=== PATIENT | female | born 1955 | race Caucasian/White ===

== ENCOUNTER 2021-05-02 16:11 | Inpatient (IN) ==
[2021-05-02] MEDS ORDERED: ONDANSETRON 4 MG/2 ML VIAL IV ONE ×2 (16:21→19:15)
--- NOTE | 2021-05-02 16:29 | Emergency Department Note ---
Nausea/Vomiting/Diarrhea HPI General Chief complaint: Nausea/Vomiting/Diarrhea Stated complaint: nausea, vomiting, fever Time Seen by Provider: 05/02/21 16:13 Mode of arrival: ambulatory Limitations: no limitations History of Present Illness HPI Narrative: Narrative: Patient is a 65-year-old female with history of non-Hodgkin's lymphoma, and she is currently receiving chemotherapy from oncologist, Dr. Martines in [place]. Patient reports that she took her temperature at home and had a reading of 100.5 degrees. She called the oncology nurse who advised her to go to the emergency department. She reports that she has had nausea and vomiting since night. She reports that she often will have nausea and vomiting due to the chemotherapy. She feels that the nausea vomiting is no different than her usual nausea and vomiting. She has been constipated. She took a dose of MiraLAX yesterday. She reports she had a soft brown bowel movement today. She has not had any chest pain, shortness of breath, wheezing, or difficulty breathing. She denies any sore throat, ear pain, nasal congestion. She does have some slight abdominal aching sensation that is diffuse throughout her abdomen. She feels that this is related to her nausea and persistent vomiting, and she feels that the pain is muscular at the abdominal muscles due to her vomiting. She reports past surgical history of cholecystectomy. She denies any urinary frequency, hesitancy, or dysuria. She was treated for a urinary tract infection 2 weeks ago. She has not had any back pain, flank pain, headache, or weakness. She has not noticed any change in color of skin, lesion, or rash. She does have a slight nonproductive cough, and she reports that this is chronic. Related Data Home Medications Medication Instructions Recorded Confirmed albuterol sulfate 90 mcg/actuation 2 inh INHALATION Q6H PRN 12/20/18 05/02/21 breath activated powder inhaler amlodipine 5 mg tablet 5 mg PO QDAY 12/20/18 05/02/21 fluoxetine 20 mg capsule 20 mg PO QDAY 12/20/18 05/02/21 fluticasone 500 mcg-salmeterol 50 1 inh INHALATION BID 12/20/18 05/02/21 mcg/dose blistr powdr for inhalation hydroxychloroquine 200 mg tablet 400 mg PO QDAY tab 12/20/18 05/02/21 losartan 100 1 tab PO QDAY 12/20/18 05/02/21 mg-hydrochlorothiazide 25 mg tablet meloxicam 15 mg tablet 15 mg PO QDAY 12/20/18 05/02/21 omeprazole 20 mg capsule,delayed 20 mg PO QDAY 12/20/18 05/02/21 release aspirin 81 mg tablet 81 mg PO QDAY 01/02/19 05/02/21 folic acid 6 mg PO QDAY 01/02/19 05/02/21 glucosamine 750 1 tab PO BID 01/02/19 05/02/21 loperamide 2 mg tablet 4 mg PO QDAY tab 01/02/19 05/02/21 methotrexate 20 mg 1 tab PO QWEEK 01/02/19 05/02/21 multivitamin 1 cap PO QDAY 01/02/19 05/02/21 potassium gluconate 99mg 1 tab PO QDAY 01/02/19 05/02/21 psyllium husk 0.52 gram capsule 0.52 g PO QHS 01/02/19 05/02/21 calcium carbonate 600 mg (1,500 1 tab PO QDAY 07/02/19 05/02/21 mg)-vitamin D3 400 unit tablet cholestyramine (with sugar) 4 gram 1 g PO QDAY g 07/02/19 05/02/21 oral powder guaifenesin [Mucinex] 1 tab PO Q4-5HP PRN 08/22/20 05/02/21 acyclovir 400 mg tablet 400 mg PO QDAY 03/30/21 05/02/21 ipratropium 0.5 mg-albuterol 3 mg 3 ml INHALATION BID PRN ml 03/30/21 05/02/21 (2.5 mg base)/3 mL nebulization soln rituximab 10 mg/mL IV 03/30/21 03/30/21 concentrate,intravenous sulfamethoxazole 800 See Rx Instructions .ROUTE 03/30/21 05/02/21 mg-trimethoprim 160 mg tablet .COMPLEX tab Previous Rx's Medication Instructions Recorded hydrocodone 7.5 mg-acetaminophen See Rx Instructions .ROUTE 01/28/21 325 mg tablet .COMPLEX PRN #30 tab Allergies Allergy/AdvReac Type Severity Reaction Status Date / Time cyclosporine [From Restasis] AdvReac Severe Swelling Verified 03/30/21 10:24 of the Eye vancomycin AdvReac Severe Hives Verified 03/30/21 10:24 cedar dust AdvReac Severe Other Uncoded 03/30/21 10:24 Review of Systems ROS ROS Narrative: Narrative: All systems ED: reviewed and negative except as stated. [facility] Narrative Patient History Narrative: Narrative: Medical/Surgical/Family History All Active Problems (Updated 05/02/21 @ 19:28 by Adan Rocha MD) Hypokalemia (Acute) Sepsis (Acute) UTI (urinary tract infection) (Acute) Fracture of right clavicle (Acute) Vaginitis (Acute) Joint pain (Chronic) Bile acid malabsorption syndrome (Chronic ~1989) History of colonoscopy (Chronic) Visit for monitoring Rituxan therapy (Chronic ~2018) History of surgery (Chronic ~04/2019) History of femur fracture (Chronic ~03/2019) Acute URI (Chronic) Vaginitis (Chronic) Non Hodgkin's lymphoma (Chronic ~04/2018) Upper respiratory infection (Chronic) Bronchiectasis (Chronic) Pulmonary HTN (Chronic ~02/2019) GERD (gastroesophageal reflux disease) (Chronic) Follicular lymphoma (Chronic ~04/2018) Coughing up blood (Chronic 03/14/14) Lower respiratory infection (Chronic) Influenza A (Chronic) Asthma exacerbation (Chronic) Mastodynia (Chronic) Diarrhea (Chronic) Gall stones (Chronic) History of blood transfusion (Chronic) Pneumonia (Chronic 06/2010) Bronchitis (Chronic) Back problem (Chronic) Arthritis (Chronic) Exposure to TB (Chronic) Measles (Chronic) Sarcoidosis (Chronic ~02/1994) Amyloidosis (Chronic) Asthma (Chronic) Hypertension (Chronic) Depression (Chronic) Obesity (Chronic) Arthritis of foot, left, degenerative (Chronic) Medical History Amyloidosis 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 Arthritis Asthma Asthma exacerbation Back problem Bile acid malabsorption syndrome (~1989) Bronchiectasis Bronchitis Coughing up blood (03/14/14) Depression Diarrhea Exposure to TB Follicular lymphoma (~04/2018) Stage IV Fracture of right clavicle Gall stones History of blood transfusion History of femur fracture (~03/2019) Repaired with hip to knee [place] Hypertension Influenza A Joint pain Lower respiratory infection Mastodynia Measles Non Hodgkin's lymphoma (~04/2018) Obesity Pneumonia (06/2010) Pulmonary HTN (~02/2019) Sarcoidosis (~02/1994) intermittently symptomatic Visit for monitoring Rituxan therapy (~2018) Surgical History Finger joint replacement of left hand (2007) Basal joint Finger joint replacement of right hand (2009) Basal joint H/O left knee surgery (1975) Meniscus removal H/O: hysterectomy (1996) still has overies History of bone marrow biopsy (06/2018) History of cholecystectomy (03/2018) History of colonoscopy History of knee replacement procedure of left knee (2004) History of knee replacement procedure of right knee (2010) History of surgery (~04/2019) Port placement & right axillary lymph node removed S/P knee replacement (2004) Left Family History Father , age 63 years COPD (chronic obstructive pulmonary disease) HTN (hypertension) Stroke Mother , 69 years Acute alcohol abuse Brother Heart attack Stroke Liver cancer Grandfather Prostate cancer Maternal Sister HTN (hypertension) Thyroid disease Other CHF (congestive heart failure) Hepatitis C No pertinent family history Social History Smoking Status: Never smoker Alcohol Intake Frequency: holiday/special occasion only Substance Use: does not use Exam Narrative Narrative: Narrative: General Limitations: no limitations General appearance: Present alert, in no apparent distress and obese Eye Eye: Present normal appearance; Absent scleral icterus ENT ENT: Present normal oropharynx and mucous membranes moist Neck Neck: Present trachea midline; Absent lymphadenopathy and thyromegaly Chest Chest: Present symmetric chest wall rise Respiratory Respiratory: Present normal lung sounds bilaterally; Absent respiratory distress, rales/crackles, wheezes, stridor, accessory muscle use and prolonged expiratory phase Cardiovascular Cardiovascular: Present regular rate and normal rhythm; Absent systolic murmur and diastolic murmur Adbominal Abdominal: Present soft, tenderness (Mild suprapubic tenderness. No rebound tenderness or palpation on the right lower quadrant or left lower quadrant.) and normal bowel sounds; Absent distention Extremities Extremities: Present normal inspection, full ROM and normal capillary refill; Absent pretibial edema Neurological Neurological: Present alert and oriented X3 Psychiatric Psychiatric: Present normal affect and normal mood Skin Skin: Present warm (WNL), dry and normal color Course Vital Signs Vital signs: Vital Signs Temperature 99.8 F H 05/02/21 16:13 Pulse Rate 107 H 05/02/21 16:13 Respiratory Rate 20 05/02/21 16:13 Blood Pressure 129/66 05/02/21 16:13 Pulse Oximetry (%) 94 05/02/21 16:13 Temperature 99.8 F H 05/02/21 16:13 Pulse Rate 100 H 05/02/21 18:30 Respiratory Rate 20 05/02/21 16:13 Blood Pressure 166/125 05/02/21 18:30 Pulse Oximetry (%) 94 05/02/21 18:30 MDM MDM Narrative Medical decision making narrative: Narrative: 65-year-old female with fever at home and currently receiving chemotherapy that came in to the emergency department in regards to the fever. She had labs drawn today. Her white count is 32.8. I was able to receive her previous CBC records from [facility], and patient's white count February 13, 2021 was 5.1, on March 30, 2021 white count was 4.2, and on April 27, 2021 white count was 2.8. Patient's urine today shows urinary tract infection. Urine was sent for culture. Patient's recent urine culture from April 19, 2021 grew E. coli. Patient's lactic acid today is normal. Blood cultures were obtained. She received 1 g of Rocephin IV, and 1 L of normal saline. Patient has tachycardia without any hypotension. Patient's potassium today is 2.8. Normal creatinine. I have ordered patient a 40 meq K rider to get be given IV. Given that the patient has urosepsis I feel it would be appropriate for patient to be hospitalized for further IV antibiotic and monitoring. I was able to consult with hospitalist, Dr. Rocha today, and Dr. Rocha will accept patient to admit at [facility]. Lab Data Result diagrams: 05/02/21 17:00 05/02/21 17:00 Labs: Lab Results 05/02/21 05/02/21 05/02/21 Range/Units 17:00 17:00 17:05 WBC 32.8 H* (4.5-11.0) K/mcL RBC 3.56 L (4.00-5.20) M/mcL Hgb 11.1 L (12.0-15.0) g/dL Hct 33.1 L (36.0-48.0) % MCV 93.0 (80.0-100.0) fL MCH 31.2 (26.0-34.0) pg MCHC 33.5 (31.0-36.0) g/dL RDW 16.6 H (11.5-14.5) % Plt Count 200 (140-440) K/mcL MPV 9.6 (7.4-10.4) fL Neut % (Auto) 96.1 H (38.0-78.0) % Lymph % (Auto) 0.5 L (15.0-49.0) % [place] % (Auto) 3.0 (1.0-12.0) % Eos % (Auto) 0 (0.0-7.0) % Baso % (Auto) 0.4 (0.0-2.0) % Lymph # (Auto) 0.15 L (1.50-4.80) K/mcL [place] # (Auto) 0.97 H (0.10-0.90) K/mcL Eos # (Auto) 0.01 (0.00-0.70) K/mcL Baso # (Auto) 0.12 (0.00-0.20) K/mcL Absolute Neutrophils 31.56 H (1.80-8.00) K/mcL VBG Lactic Acid (0.5-2.0) mmol/L Sodium 134 (133-145) mmol/L Potassium 2.8 L* (3.3-5.1) mmol/L Chloride 93 L (96-108) mmol/L Carbon Dioxide 26 (22-30) mmol/L Anion Gap 15.0 (8.0-16.0) BUN 6 L (8-23) mg/dL Creatinine 0.6 (0.6-1.1) mg/dL GFR Calculation 97 Glucose 113 H (70-105) mg/dL Calcium 8.5 L (8.6-10.4) mg/dL Total Bilirubin 1.0 (0.1-1.0) mg/dL AST 23 (<32) U/L ALT 26 (<40) U/L Alkaline Phosphatase 122 H (39-117) U/L Total Protein 6.5 (5.9-8.4) gm/dL Albumin 3.8 (3.2-5.2) gm/dL Globulin 2.7 (2.2-3.7) gm/dL Albumin/Globulin Ratio 1.4 (1.0-2.3) Lipase 12 (7-60) U/L Urine Color Yellow Urine Appearance Hazy A (Clear) Urine pH 6.0 (5.0-9.0) Ur Specific [place] 1.010 (1.000-1.035) Urine Protein Negative (Negative) mg/dL Urine Glucose (UA) Negative (Negative) mg/dL Urine Ketones 20 A (Negative) mg/dL Urine Occult Blood Negative (Negative) mg/dL Urine Nitrate Negative (Negative) Urine Bilirubin Negative (Negative) mg/dL Urine Urobilinogen Negative mg/dL Ur Leukocyte Esterase 25 A (Negative) /ug Urine RBC < 1 (0-3) /hpf Urine WBC 26 H (0-4) /hpf Ur Squamous Epith Cells < 1 (0-4) /hpf Urine Bacteria Few A (0) /hpf Urine Mucus Few A (None) /hpf Ur Culture Indicated? yes 05/02/21 Range/Units 18:08 WBC (4.5-11.0) K/mcL RBC (4.00-5.20) M/mcL Hgb (12.0-15.0) g/dL Hct (36.0-48.0) % MCV (80.0-100.0) fL MCH (26.0-34.0) pg MCHC (31.0-36.0) g/dL RDW (11.5-14.5) % Plt Count (140-440) K/mcL MPV (7.4-10.4) fL Neut % (Auto) (38.0-78.0) % Lymph % (Auto) (15.0-49.0) % [place] % (Auto) (1.0-12.0) % Eos % (Auto) (0.0-7.0) % Baso % (Auto) (0.0-2.0) % Lymph # (Auto) (1.50-4.80) K/mcL [place] # (Auto) (0.10-0.90) K/mcL Eos # (Auto) (0.00-0.70) K/mcL Baso # (Auto) (0.00-0.20) K/mcL Absolute Neutrophils (1.80-8.00) K/mcL VBG Lactic Acid 1.7 (0.5-2.0) mmol/L Sodium (133-145) mmol/L Potassium (3.3-5.1) mmol/L Chloride (96-108) mmol/L Carbon Dioxide (22-30) mmol/L Anion Gap (8.0-16.0) BUN (8-23) mg/dL Creatinine (0.6-1.1) mg/dL GFR Calculation Glucose (70-105) mg/dL Calcium (8.6-10.4) mg/dL Total Bilirubin (0.1-1.0) mg/dL AST (<32) U/L ALT (<40) U/L Alkaline Phosphatase (39-117) U/L Total Protein (5.9-8.4) gm/dL Albumin (3.2-5.2) gm/dL Globulin (2.2-3.7) gm/dL Albumin/Globulin Ratio (1.0-2.3) Lipase (7-60) U/L Urine Color Urine Appearance (Clear) Urine pH (5.0-9.0) Ur Specific [place] (1.000-1.035) Urine Protein (Negative) mg/dL Urine Glucose (UA) (Negative) mg/dL Urine Ketones (Negative) mg/dL Urine Occult Blood (Negative) mg/dL Urine Nitrate (Negative) Urine Bilirubin (Negative) mg/dL Urine Urobilinogen mg/dL Ur Leukocyte Esterase (Negative) /ug Urine RBC (0-3) /hpf Urine WBC (0-4) /hpf Ur Squamous Epith Cells (0-4) /hpf Urine Bacteria (0) /hpf Urine Mucus (None) /hpf Ur Culture Indicated? ED POC Tests ED POC Tests: KASSI - SARS Antigen Negative Discharge Plan Patient/Caregiver Discharge Instructions Pt seen by ASSOCIATE PROFESSOR OF BIBLICAL STUDIES/PA only: No Clinical Impression: Sepsis Qualifiers: Sepsis type: sepsis due to unspecified organism Sepsis acute organ dysfunction status: without acute organ dysfunction Qualified Code(s): A41.9 - Sepsis, unspecified organism UTI (urinary tract infection) Qualifiers: Urinary tract infection type: site unspecified Hematuria presence: with hematuria Qualified Code(s): N39.0 - Urinary tract infection, site not specified Patient Disposition: Xfer As Inpt ([facility]) Condition: Good Discharge Date/Time: 05/02/21 20:20
[2021-05-02 17:47] LABS: Appearance,Urine HAZY (Clear); Bacteria,Urine FEW /hpf (0); Bilirubin,Urine Negative (Negative); Color,Urine YELLOW; Culture Indicated,Urine yes; Glucose,Urine (UA) Negative (Negative); Ketones,Urine 20 mg/dL (Negative); Leukocyte Esterase,Urine 25 /ug (Negative); Mucus,Urine FEW /hpf; Nitrate,Urine Negative (Negative); Protein,Urine Negative (Negative); Urine Blood Negative (Negative); Urine RBC < 1 /hpf (0-3); Urine Squamous Epithelial Cell < 1 /hpf (0-4); Urine WBC 26 /hpf (0-4); Urobilinogen,Urine Negative
[2021-05-02 17:52] LABS: Basophils # (Auto) 0.12 K/mcL (0.00-0.20); Basophils % (Auto) 0.4 % (0.0-2.0); Eosinophils # (Auto) 0.01 K/mcL (0.00-0.70); Eosinophils % (Auto) 0 % (0.0-7.0); Hematocrit 33.1 % (36.0-48.0); Hemoglobin 11.1 g/dL (12.0-15.0); Lymphocytes # (Auto) 0.15 K/mcL (1.50-4.80); Lymphocytes % (Auto) 0.5 % (15.0-49.0); Mean Corpuscular HGB Conc 33.5 g/dL (31.0-36.0); Mean Platelet Volume 9.6 fL (7.4-10.4); Monocytes # (Auto) 0.97 K/mcL (0.10-0.90); Platelet Count 200 K/mcL (140-440); RBC 3.56 M/mcL (4.00-5.20); Red Cell Distribution Width 16.6 % (11.5-14.5); WBC 32.8 K/mcL (4.5-11.0)
[2021-05-02] MEDS ORDERED: cefTRIAXone 1 GM VIAL IV ONE (18:04)
[2021-05-02 18:08] LABS: Neutrophils % (Auto) 96.1 % (38.0-78.0)
[2021-05-02 18:28] LABS: ALT/SGPT 26 U/L (<40); AST/SGOT 23 U/L (<32); Albumin 3.8 gm/dL (3.2-5.2); Albumin/Globulin Ratio 1.4 (1.0-2.3); Alkaline Phosphatase 122 U/L (39-117); Blood Urea Nitrogen 6 mg/dL (8-23); Calcium 8.5 mg/dL (8.6-10.4); Carbon Dioxide 26 mmol/L (22-30); Chloride 93 mmol/L (96-108); Globulin 2.7 gm/dL (2.2-3.7); Glomerular Filtration Rate 97; Glucose 113 mg/dL (70-105)
[2021-05-02] MEDS ORDERED: 0.9 % SODIUM CHLORIDE 1,000 ML IV ONE (18:38)
[2021-05-02] MEDS ORDERED: POTASSIUM CHLORIDE 40 MEQ in DEXTROSE 5% IN WATER 500 ML IV ONE (18:38)
[2021-05-02] MEDS ORDERED: POTASSIUM CHLORIDE 20 MEQ/10 ML VIAL IV ONE (18:51)
[2021-05-02] MEDS ORDERED: IPRATROPIUM/ALBUTEROL 3 ML AMPUL.NEB NEB PRN (19:20)
[2021-05-02] MEDS ORDERED: morphine 4 MG/ML VIAL IV PRN (19:23)
[2021-05-02] MEDS ORDERED: ACETAMINOPHEN 325 MG TABLET PO PRN (19:23)
[2021-05-02] MEDS ORDERED: ZOLPIDEM 5 MG TABLET PO PRN (19:23)
[2021-05-02] MEDS ORDERED: ONDANSETRON 4 MG/2 ML VIAL IV PRN (19:23)
--- NOTE | 2021-05-02 19:31 | Internal Med History&Physical ---
HPI History of Present Illness Patient information: Note initiated : 05/02/21 at 7:28 pm Service Date, if different from initiated Date: [] Patient: Ursula Valencia a 65 y/o F admitted on for nausea, vomiting, fever. Chief Complaint: [fever, UTI] History of present illness: Ms. Valencia is a 65 year old F history of non- Hodgkin lymphoma on chemotherapy, amyloidosis, sarcoidosis, pulmonary hypertension's, asthma, essential hypertension's, GERD, morbid obesity, presenting with 2-day history of fever, shaking chills, and nausea vomiting. Of note, she was being diagnosed with E. coli UTI 2 weeks ago and she was prescribed cefuroxime. She finished the antibiotics. She currently denies any urinary symptoms such as dysuria, change in urinary frequency or urgency. She had fever since yesterday with T-max 100.5. She also is committing of shaking chills. She has multiple episode of nausea and vomiting nonbloody nonbilious. She is also complaining of bilateral pelvic cramping moderate constant pain. No alleviating or exacerbating factors. She denies introduction of new foods, sick contact, or recent travel. Leukocytosis with WBC 32.8. Lactic acid 1.7. UA suggestive the presence of urinary tract infections. Constitutional Constitutional: Present chills, fever(s) and weakness; Absent excessive sweating and fatigue EENT Eyes: Absent blurry vision, change in vision, loss of vision and other visual disturbances Ears: Absent decreased hearing and tinnitus Nose, mouth and throat: Absent abnormal hearing, dry mouth, headache(s), nasal congestion and sore throat Cardiovascular Cardiovascular: Absent chest pain, chest pain at rest, edema, irregular heart rhythm and palpatations Respiratory Respiratory: Absent cough, dyspnea and wheezing Gastrointestinal Gastrointestinal: Present abdominal pain, nausea and vomiting; Absent constipation and diarrhea Musculoskeletal Musculoskeletal: Absent back pain, deformity, limited range of motion, muscle cramps, muscle weakness and numbness Integumentary Integumentary: Absent lesions, rash and wounds Neurological Neurological: Absent focal weakness, headache(s) and numbness Psychiatric Psychiatric: Absent anxiety, depression and hallucinations PFSH PFSH All Active Problems (Updated 05/02/21 @ 19:28 by Adan Rocha MD) Hypokalemia (Acute) Sepsis (Acute) UTI (urinary tract infection) (Acute) Fracture of right clavicle (Acute) Vaginitis (Acute) Joint pain (Chronic) Bile acid malabsorption syndrome (Chronic ~1989) History of colonoscopy (Chronic) Visit for monitoring Rituxan therapy (Chronic ~2018) History of surgery (Chronic ~04/2019) History of femur fracture (Chronic ~03/2019) Acute URI (Chronic) Vaginitis (Chronic) Non Hodgkin's lymphoma (Chronic ~04/2018) Upper respiratory infection (Chronic) Bronchiectasis (Chronic) Pulmonary HTN (Chronic ~02/2019) GERD (gastroesophageal reflux disease) (Chronic) Follicular lymphoma (Chronic ~04/2018) Coughing up blood (Chronic 03/14/14) Lower respiratory infection (Chronic) Influenza A (Chronic) Asthma exacerbation (Chronic) Mastodynia (Chronic) Diarrhea (Chronic) Gall stones (Chronic) History of blood transfusion (Chronic) Pneumonia (Chronic 06/2010) Bronchitis (Chronic) Back problem (Chronic) Arthritis (Chronic) Exposure to TB (Chronic) Measles (Chronic) Sarcoidosis (Chronic ~02/1994) Amyloidosis (Chronic) Asthma (Chronic) Hypertension (Chronic) Depression (Chronic) Obesity (Chronic) Arthritis of foot, left, degenerative (Chronic) Medical History Amyloidosis 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 Arthritis Asthma Asthma exacerbation Back problem Bile acid malabsorption syndrome (~1989) Bronchiectasis Bronchitis Coughing up blood (03/14/14) Depression Diarrhea Exposure to TB Follicular lymphoma (~04/2018) Stage IV Fracture of right clavicle Gall stones History of blood transfusion History of femur fracture (~03/2019) Repaired with hip to knee [place] Hypertension Influenza A Joint pain Lower respiratory infection Mastodynia Measles Non Hodgkin's lymphoma (~04/2018) Obesity Pneumonia (06/2010) Pulmonary HTN (~02/2019) Sarcoidosis (~02/1994) intermittently symptomatic Visit for monitoring Rituxan therapy (~2018) Surgical History Finger joint replacement of left hand (2007) Basal joint Finger joint replacement of right hand (2009) Basal joint H/O left knee surgery (1975) Meniscus removal H/O: hysterectomy (1996) still has overies History of bone marrow biopsy (06/2018) History of cholecystectomy (03/2018) History of colonoscopy History of knee replacement procedure of left knee (2004) History of knee replacement procedure of right knee (2010) History of surgery (~04/2019) Port placement & right axillary lymph node removed S/P knee replacement (2004) Left Family History Father , age 63 years COPD (chronic obstructive pulmonary disease) HTN (hypertension) Stroke Mother , 69 years Acute alcohol abuse Brother Heart attack Stroke Liver cancer Grandfather Prostate cancer Maternal Sister HTN (hypertension) Thyroid disease Other CHF (congestive heart failure) Hepatitis C No pertinent family history Social History marital status: occupational status: retired smoking status: Never smoker alcohol intake frequency: holiday/special occasion only substance use type: does not use MEDS/ALLERGIES Home Medications and Allergies Home Medications Medication Instructions Recorded Confirmed Type albuterol sulfate 90 mcg/actuation 2 inh INHALATION Q6H PRN 12/20/18 05/02/21 History breath activated powder inhaler amlodipine 5 mg tablet 5 mg PO QDAY 12/20/18 05/02/21 History fluoxetine 20 mg capsule 20 mg PO QDAY 12/20/18 05/02/21 History fluticasone 500 mcg-salmeterol 50 1 inh INHALATION BID 12/20/18 05/02/21 History mcg/dose blistr powdr for inhalation hydroxychloroquine 200 mg tablet 400 mg PO QDAY tab 12/20/18 05/02/21 History losartan 100 1 tab PO QDAY 12/20/18 05/02/21 History mg-hydrochlorothiazide 25 mg tablet meloxicam 15 mg tablet 15 mg PO QDAY 12/20/18 05/02/21 History omeprazole 20 mg capsule,delayed 20 mg PO QDAY 12/20/18 05/02/21 History release aspirin 81 mg tablet 81 mg PO QDAY 01/02/19 05/02/21 History folic acid 6 mg PO QDAY 01/02/19 05/02/21 History glucosamine 750 1 tab PO BID 01/02/19 05/02/21 History loperamide 2 mg tablet 4 mg PO QDAY tab 01/02/19 05/02/21 History methotrexate 20 mg 1 tab PO QWEEK 01/02/19 05/02/21 History multivitamin 1 cap PO QDAY 01/02/19 05/02/21 History potassium gluconate 99mg 1 tab PO QDAY 01/02/19 05/02/21 History psyllium husk 0.52 gram capsule 0.52 g PO QHS 01/02/19 05/02/21 History calcium carbonate 600 mg (1,500 1 tab PO QDAY 07/02/19 05/02/21 History mg)-vitamin D3 400 unit tablet cholestyramine (with sugar) 4 gram 1 g PO QDAY g 07/02/19 05/02/21 History oral powder guaifenesin [Mucinex] 1 tab PO Q4-5HP PRN 08/22/20 05/02/21 History hydrocodone 7.5 mg-acetaminophen See Rx Instructions .ROUTE 01/28/21 03/30/21 Rx 325 mg tablet .COMPLEX PRN #30 tab acyclovir 400 mg tablet 400 mg PO QDAY 03/30/21 05/02/21 History ipratropium 0.5 mg-albuterol 3 mg 3 ml INHALATION BID PRN ml 03/30/21 05/02/21 History (2.5 mg base)/3 mL nebulization soln rituximab 10 mg/mL IV 03/30/21 03/30/21 History concentrate,intravenous sulfamethoxazole 800 See Rx Instructions .ROUTE 03/30/21 05/02/21 History mg-trimethoprim 160 mg tablet .COMPLEX tab Allergies Allergy/AdvReac Type Severity Reaction Status Date / Time cyclosporine [From Restasis] AdvReac Severe Swelling Verified 03/30/21 10:24 of the Eye vancomycin AdvReac Severe Hives Verified 03/30/21 10:24 cedar dust AdvReac Severe Other Uncoded 03/30/21 10:24 EXAM Constitutional Vitals: Temp Pulse Resp BP Pulse Ox 37.7 C H 100 H 20 166/125 94 05/02/21 16:13 05/02/21 18:30 05/02/21 16:13 05/02/21 18:30 05/02/21 18:30 General appearance: cooperative and no acute distress Head Head exam: Present atraumatic and normocephalic Eye Eye exam: Present EOMI and PERRL ENT ENT exam: Present mucous membranes moist, normal exam and normal external ear exam Neck Neck exam: Present normal inspection; Absent lymphadenopathy, tenderness and thyromegaly Respiratory Respiratory exam: Present prolonged expiratory phase and wheezes; Absent accessory muscle use and respiratory distress Cardiovascular Cardiovascular exam: Present normal rate and rhythm; Absent JVD GI/Abdominal GI/Abdominal exam: Present normal bowel sounds, soft and tenderness; Absent organomegaly Additional comments: obese abdomen Extremities Exam Extremities exam: Present full ROM, normal capillary refill and normal inspection; Absent tenderness Neurological Exam Neurological exam: Present alert, CN II-XII intact and oriented X3; Absent motor sensory deficit Psychiatric Psychiatric exam: Present normal affect and normal mood; Absent anxious and depressed Skin Skin exam: Present dry and intact DATA Data Completed and Pending Labs: Labs from last 24 hours 05/02/21 05/02/21 05/02/21 18:08 17:05 17:00 WBC RBC Hgb Hct MCV MCH MCHC RDW Plt Count MPV Neut % (Auto) Lymph % (Auto) [place] % (Auto) Eos % (Auto) Baso % (Auto) Lymph # (Auto) [place] # (Auto) Eos # (Auto) Baso # (Auto) Absolute Neutrophils VBG Lactic Acid 1.7 Sodium 134 Potassium 2.8 L* Chloride 93 L Carbon Dioxide 26 Anion Gap 15.0 BUN 6 L Creatinine 0.6 GFR Calculation 97 Glucose 113 H Calcium 8.5 L Total Bilirubin 1.0 AST 23 ALT 26 Alkaline Phosphatase 122 H Total Protein 6.5 Albumin 3.8 Globulin 2.7 Albumin/Globulin Ratio 1.4 Lipase 12 Urine Color Yellow Urine Appearance Hazy A Urine pH 6.0 Ur Specific [place] 1.010 Urine Protein Negative Urine Glucose (UA) Negative Urine Ketones 20 A Urine Occult Blood Negative Urine Nitrate Negative Urine Bilirubin Negative Urine Urobilinogen Negative Ur Leukocyte Esterase 25 A Urine RBC < 1 Urine WBC 26 H Ur Squamous Epith Cells < 1 Urine Bacteria Few A Urine Mucus Few A Ur Culture Indicated? yes 05/02/21 17:00 WBC 32.8 H* RBC 3.56 L Hgb 11.1 L Hct 33.1 L MCV 93.0 MCH 31.2 MCHC 33.5 RDW 16.6 H Plt Count 200 MPV 9.6 Neut % (Auto) 96.1 H Lymph % (Auto) 0.5 L [place] % (Auto) 3.0 Eos % (Auto) 0 Baso % (Auto) 0.4 Lymph # (Auto) 0.15 L [place] # (Auto) 0.97 H Eos # (Auto) 0.01 Baso # (Auto) 0.12 Absolute Neutrophils 31.56 H VBG Lactic Acid Sodium Potassium Chloride Carbon Dioxide Anion Gap BUN Creatinine GFR Calculation Glucose Calcium Total Bilirubin AST ALT Alkaline Phosphatase Total Protein Albumin Globulin Albumin/Globulin Ratio Lipase Urine Color Urine Appearance Urine pH Ur Specific [place] Urine Protein Urine Glucose (UA) Urine Ketones Urine Occult Blood Urine Nitrate Urine Bilirubin Urine Urobilinogen Ur Leukocyte Esterase Urine RBC Urine WBC Ur Squamous Epith Cells Urine Bacteria Urine Mucus Ur Culture Indicated? A/P Assessment and plan (1) Hypokalemia: Status: Acute (2) Sepsis: Status: Acute Qualifiers: Sepsis acute organ dysfunction status: without acute organ dysfunction Sepsis type: sepsis due to unspecified organism Qualified Code(s): A41.9 - Sepsis, unspecified organism (3) UTI (urinary tract infection): Status: Acute Qualifiers: Hematuria presence: with hematuria Urinary tract infection type: site unspecified Qualified Code(s): N39.0 - Urinary tract infection, site not specified; R31.9 - Hematuria, unspecified (4) Non Hodgkin's lymphoma: Status: Chronic Qualifiers: Non-Hodgkin lymphoma type: follicular Follicular lymphoma type: unspecified follicular type Lymphoma site: lower extremity Qualified Code(s): C82.95 - Follicular lymphoma, unspecified, lymph nodes of inguinal region and lower limb (5) Pulmonary HTN: Status: Chronic (6) GERD (gastroesophageal reflux disease): Status: Chronic Qualifiers: Esophagitis presence: esophagitis presence not specified Qualified Code(s): K21.9 - Gastro-esophageal reflux disease without esophagitis (7) Bronchitis: Status: Chronic (8) Sarcoidosis: Status: Chronic Comment: intermittently symptomatic (9) Amyloidosis: Status: Chronic Comment: 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 Sepsis with UTI: Admit to inpatient med surg Serial lactic acid Procalcitonin Blood culture X2 Urine culture NS bolus 1L followed by NS@100cc/hr Rocephin Tylenol PRN fever cbc w/ auto diff in the morning to trend WBC 2. h/o non-Hodgkin lymphoma: Continue to monitor, need follow up with oncologist outpatient setting 3. Hypokalemia: Continue potassium replacement CMP in the morning to trend serum potassium level Also check serum Mg level and replace if needed 4. Essential HTN: Amlodipine d/c HCTZ-Losartan, instead do Losartan 100mg PO daily since we are giving IV fluid at the same time 5. h/o GERD: Continue oral PPI 6. 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 h/o asthma and bronchiectasis: Continue Advair Diskus 8. h/o Depression: Fluoxetine 9. Amyloidosis/Sarcoidosis: Continue to monitor GI ppx: continue oral PPI DVY ppx: Lovenox Code status: Full Prognosis: guarded Disposition: inpatient med sug Time Spent With Patient Time: Total time spent is greater than 50% in coordination of care (as documented) at patient's floor/unit and/or counseling patient: Total time spent with greater than 50% in coordination of care (as documented) at patient's floor/unit and/or counseling patient:: 25 - 35 minutes
[2021-05-02] MEDS ORDERED: guaiFENesin 600 MG TAB.SR.12H PO PRN (20:31)
[2021-05-02] MEDS ORDERED: HYDROCODONE/APAP 7.5/325MG TABLET PO PRN (20:32)
[2021-05-02] MEDS: 0.9 % SODIUM CHLORIDE 1,000 ML IV SCH ×2 (20:59→23:53)
[2021-05-02] MEDS ORDERED: PSYLLIUM HUSK 0.52 GM PO SCH (21:00)
[2021-05-02] MEDS: SENNOSIDES 1 TABLET PO SCH (21:17)
[2021-05-02] MEDS: 0.9 % SODIUM CHLORIDE 10 ML SYRINGE IV SCH (21:17)
[2021-05-02] MEDS: DOCUSATE SODIUM 100 MG CAPSULE PO SCH (21:17)
[2021-05-02] MEDS: FLUTICASONE/SALMETEROL 500/50 INHALER #14 INH SCH (21:18)
[2021-05-02] MEDS: GLUCOSAMINE PO SCH (21:58)
[2021-05-03] MEDS: 0.9 % SODIUM CHLORIDE 1,000 ML IV SCH ×4 (06:04→20:08)
[2021-05-03] MEDS: 0.9 % SODIUM CHLORIDE 10 ML SYRINGE IV SCH ×3 (06:04→20:12)
[2021-05-03 07:32] LABS: Basophils # (Auto) 0.07 K/mcL (0.00-0.20); Basophils % (Auto) 0.3 % (0.0-2.0); Eosinophils # (Auto) 0.02 K/mcL (0.00-0.70); Eosinophils % (Auto) 0.1 % (0.0-7.0); Hematocrit 30.5 % (36.0-48.0); Hemoglobin 9.8 g/dL (12.0-15.0); Lymphocytes # (Auto) 0.11 K/mcL (1.50-4.80); Lymphocytes % (Auto) 0.4 % (15.0-49.0); Mean Cell Volume 92.4 fL (80.0-100.0); Mean Corpuscular HGB Conc 32.1 g/dL (31.0-36.0); Mean Platelet Volume 9.9 fL (7.4-10.4); Monocytes % (Auto) 3.7 % (1.0-12.0); Neutrophils % (Auto) 95.5 % (38.0-78.0); Platelet Count 181 K/mcL (140-440); Red Cell Distribution Width 16.3 % (11.5-14.5)
[2021-05-03 07:50] LABS: WBC 27.2 K/mcL (4.5-11.0)
[2021-05-03] MEDS: FLUTICASONE/SALMETEROL 500/50 INHALER #14 INH SCH ×2 (07:56→20:11)
[2021-05-03] MEDS: LOSARTAN 50 MG TABLET PO SCH (07:57)
[2021-05-03] MEDS: DOCUSATE SODIUM 100 MG CAPSULE PO SCH ×2 (07:57→20:11)
[2021-05-03] MEDS: GLUCOSAMINE PO SCH (07:58)
[2021-05-03 07:59] LABS: ALT/SGPT 20 U/L (<40); AST/SGOT 19 U/L (<32); Albumin 3.4 gm/dL (3.2-5.2); Albumin/Globulin Ratio 1.4 (1.0-2.3); Alkaline Phosphatase 166 U/L (39-117); Bilirubin,Total 0.6 mg/dL (0.1-1.0); Blood Urea Nitrogen 4 mg/dL (8-23); Calcium 7.5 mg/dL (8.6-10.4); Carbon Dioxide 28 mmol/L (22-30); Chloride 98 mmol/L (96-108); Globulin 2.4 gm/dL (2.2-3.7); Glomerular Filtration Rate 103; Glucose 116 mg/dL (70-105)
[2021-05-03] MEDS: OMEPRAZOLE 20 MG CAPSULE PO SCH ×2 (07:59→19:28)
[2021-05-03] MEDS: FLUoxetine HCL 20 MG CAPSULE PO SCH (07:59)
[2021-05-03] MEDS: amLODIPine 5 MG TABLET PO SCH (07:59)
[2021-05-03] MEDS: HYDROXYCHLOROQUINE 200 MG TABLET PO SCH (07:59)
[2021-05-03] MEDS: ACYCLOVIR 400 MG TABLET PO SCH (08:00)
[2021-05-03] MEDS ORDERED: ALBUTEROL SULFATE 200 PUFF INHALER INH PRN (08:08)
[2021-05-03] MEDS: MULTIVIT,THER IRON,CA,FA & MIN 1 TABLET PO SCH (08:13)
[2021-05-03] MEDS: POTASSIUM GLUCONATE 99 MG PO SCH (08:13)
[2021-05-03] MEDS: CALCIUM W/VIT D3 500 MG TABLET PO SCH (08:14)
[2021-05-03] MEDS: FOLIC ACID 1 MG TABLET PO SCH (08:14)
[2021-05-03] MEDS: MELOXICAM 7.5 MG TABLET PO SCH (08:15)
[2021-05-03] MEDS: GLUCOSAMINE 750 MG PO SCH ×2 (08:15→22:04)
[2021-05-03] MEDS ORDERED: MELATONIN 3 MG TABLET PO PRN ×2 (08:30→08:45)
--- NOTE | 2021-05-03 08:37 | Internal Med Progress Note ---
SUBJECTIVE Subjective Patient information: Note initiated : 05/03/21 at 8:33 am Service Date, if different from initiated Date: [] Patient: Ursula Valencia a 65 y/o F admitted on 05/02/21 for nausea, vomiting, fever. Chief Complaint: [UTI sepsis] 05/03/21: Afebrile. Blood and urine cultures no growth to date. No other major overnight events. Patient is feeling fine this morning. Denies fever or chills or sweating. Denies dysuria, or change in urinary frequency or urgency. Denies nausea or vomiting. Constitutional Vitals: Vital Signs Temp Pulse Resp BP Pulse Ox 36.2 C 87 18 125/69 93 05/03/21 07:05 05/03/21 07:05 05/03/21 07:05 05/03/21 07:05 05/03/21 07:05 Period Temp Pulse Resp BP Sys/[place] Pulse Ox Last 24 Hr 36.2 C-37.7 C 87-107 18-22 125-166/59-125 93-98 Intake and Output 05/02/21 05/03/21 05/03/21 21:59 05:59 13:59 Intake Total 1000 1800 Output Total 650 1700 300 Balance 350 100 -300 Weight 125.248 kg Intake & Output: Intake & Output 05/02/21 05/03/21 05/03/21 21:59 05:59 13:59 Intake Total 1000 1800 Output Total 650 1700 300 Balance 350 100 -300 Weight 125.248 kg Intake: IV 1000 520 Sodium Chloride 0.9% 1,000 ml @ 1000 Wide Open IV BOLUS ONE Rx#: [id number] Potassium Chloride 40 Meq In 520 Dextrose 5% in Water 500 ml @ 130 mls/hr IV ONCE ONE Rx#: [id number] Oral 1280 Output: Void Amount 650 1700 300 Other: Urine Appearance Clear Urine Color Dark Yellow Light [place] Urine Odor Normal Normal General appearance: cooperative and no acute distress Head Head exam: Present atraumatic and normocephalic Eye Eye exam: Present EOMI and PERRL ENT ENT exam: Present mucous membranes moist, normal exam and normal external ear exam Neck Neck exam: Present normal inspection; Absent lymphadenopathy, tenderness and thyromegaly Respiratory Respiratory exam: Absent accessory muscle use, respiratory distress and wheezes Cardiovascular Cardiovascular exam: Present normal rate and rhythm; Absent JVD GI/Abdominal GI/Abdominal exam: Present normal bowel sounds and soft; Absent organomegaly and tenderness Extremities Exam Extremities exam: Present full ROM, normal capillary refill and normal inspection; Absent tenderness Neurological Exam Neurological exam: Present alert, CN II-XII intact and oriented X3; Absent motor sensory deficit Psychiatric Psychiatric exam: Present normal affect and normal mood; Absent anxious and depressed Skin Skin exam: Present dry and intact OBJ DATA Labs CBC & Chem 7: 05/03/21 05:34 05/03/21 05:34 Labs: Abnormal Lab Results 05/03/21 05/03/21 05/02/21 05:34 05:34 17:05 WBC 27.2 H RBC 3.30 L Hgb 9.8 L Hct 30.5 L RDW 16.3 H Neut % (Auto) 95.5 H Lymph % (Auto) 0.4 L Lymph # (Auto) 0.11 L [place] # (Auto) 1.00 H Absolute Neutrophils 26.01 H Potassium 2.7 L* Chloride BUN 4 L Creatinine 0.5 L Glucose 116 H Calcium 7.5 L Alkaline Phosphatase 166 H Total Protein 5.8 L Procalcitonin Urine Appearance Hazy A Urine Ketones 20 A Ur Leukocyte Esterase 25 A Urine WBC 26 H Urine Bacteria Few A Urine Mucus Few A 05/02/21 05/02/21 05/02/21 17:00 17:00 17:00 WBC 32.8 H* RBC 3.56 L Hgb 11.1 L Hct 33.1 L RDW 16.6 H Neut % (Auto) 96.1 H Lymph % (Auto) 0.5 L Lymph # (Auto) 0.15 L [place] # (Auto) 0.97 H Absolute Neutrophils 31.56 H Potassium 2.8 L* Chloride 93 L BUN 6 L Creatinine Glucose 113 H Calcium 8.5 L Alkaline Phosphatase 122 H Total Protein Procalcitonin 0.34 H Urine Appearance Urine Ketones Ur Leukocyte Esterase Urine WBC Urine Bacteria Urine Mucus Meds: Medications Acetaminophen (Acetaminophen 325 Mg Tablet) 650 mg PO Q6HP PRN; Protocol PRN Reason: Per Pain Protocol/Fever > 101 Hydrocodone Bitart/Acetaminophen (Hydrocodone/Apap 7.5/325mg Tablet) 1 - 2 tab PO HSP PRN PRN Reason: Pain Acyclovir (Acyclovir 400 Mg Tablet) 400 mg PO QDAY [facility]; Protocol Last Admin: 05/03/21 08:00 Dose: Not Given Documented by: Albuterol Sulfate (Albuterol Sulfate 200 Puff Inhaler) 2 puff INH Q6HP PRN PRN Reason: Shortness Of Breath Albuterol/Ipratropium (Ipratropium/Albuterol 3 Ml Ampul.Neb) 3 ml NEB BID PRN PRN Reason: Shortness Of Breath Or Wheezing Amlodipine Besylate (Amlodipine 5 Mg Tablet) 5 mg PO QDAY [facility] Last Admin: 05/03/21 07:59 Dose: Not Given Documented by: Calcium/Vitamin D (Calcium W/Vit D3 500 Mg Tablet) 500 mg PO DAILY [facility] Last Admin: 05/03/21 08:14 Dose: Not Given Documented by: Ceftriaxone Sodium (Ceftriaxone 1 Gm Vial) 1 gm IV Q24H [facility]; Protocol Cholestyramine Resin (Cholestyramine/Aspartame 4 Gm Powd.Pack) 4 gm PO QDAY [facility] Docusate Sodium (Docusate Sodium 100 Mg Capsule) 100 mg PO BID [facility] Last Admin: 05/03/21 07:57 Dose: Not Given Documented by: Enoxaparin Sodium (Enoxaparin 40 Mg/0.4 Ml Syringe) 40 mg SQ DAILY [facility] Fluoxetine HCl (Fluoxetine Hcl 20 Mg Capsule) 20 mg PO QDAY [facility] Last Admin: 05/03/21 07:59 Dose: Not Given Documented by: Folic Acid (Folic Acid 1 Mg Tablet) 6 mg PO DAILY [facility] Last Admin: 05/03/21 08:14 Dose: Not Given Documented by: Guaifenesin (Guaifenesin 600 Mg Tab.Sr.12h) 600 mg PO Q4-5HP PRN PRN Reason: Cold Symptoms Hydroxychloroquine Sulfate (Hydroxychloroquine 200 Mg Tablet) 400 mg PO QDAY [facility] Last Admin: 05/03/21 07:59 Dose: Not Given Documented by: Sodium Chloride (Sodium Chloride 0.9%) 1,000 mls @ 100 mls/hr IV .Q10H [facility] Last Admin: 05/03/21 06:04 Dose: Not Given Documented by: Iron Carb/Multivit/[place]/Folic Acid (Multivit,Ther Iron,Ca,Fa & Min 1 Tablet) 1 tab PO DAILY [facility] Last Admin: 05/03/21 08:13 Dose: Not Given Documented by: Loperamide HCl (Loperamide 2 Mg Capsule) 4 mg PO UD PRN PRN Reason: Diarrhea Losartan Potassium (Losartan 50 Mg Tablet) 100 mg PO DAILY [facility] Last Admin: 05/03/21 07:57 Dose: Not Given Documented by: Melatonin (Melatonin 3 Mg Tablet) 10 mg PO HSP PRN PRN Reason: Insomnia Meloxicam (Meloxicam 7.5 Mg Tablet) 15 mg PO DAILY [facility] Last Admin: 05/03/21 08:15 Dose: Not Given Documented by: Morphine Sulfate (Morphine 4 Mg/Ml Vial) 2 mg IV Q4HP PRN; Protocol PRN Reason: Per Pain Protocol Non-Formulary Medication (Methotrexate 20 Mg) 1 tab PO QWEEK [facility] Omeprazole (Omeprazole 20 Mg Capsule) 20 mg PO QDAY [facility] Last Admin: 05/03/21 07:59 Dose: Not Given Documented by: Ondansetron HCl (Ondansetron 4 Mg/2 Ml Vial) 4 mg IV Q6HP PRN PRN Reason: Nausea And Vomiting Glucosamine 750 Mg (Tab) 1 dose PO BID [facility] Last Admin: 05/03/21 08:15 Dose: Not Given Documented by: Potassium Gluconate (99mg Tab) 1 dose PO QDAY [facility] Last Admin: 05/03/21 08:13 Dose: Not Given Documented by: Psyllium Husk [ Metamucil] 0.52 Gram Capsule 1 dose PO QHS [facility] Potassium Chloride (Potassium Chloride 20 Meq Tablet) 40 meq PO BIDCC [facility] Fluticasone/Salmeterol (Fluticasone/Salmeterol 500/50 Inhaler #14) 1 puff INH BID [facility] Last Admin: 05/03/21 07:56 Dose: Not Given Documented by: Senna (Sennosides 1 Tablet) 2 tab PO [facility] Last Admin: 05/02/21 21:17 Dose: Not Given Documented by: Sodium Chloride (0.9 % Sodium Chloride 10 Ml Syringe) 10 ml IV Q8 [facility] Last Admin: 05/03/21 06:04 Dose: Not Given Documented by: Zolpidem Tartrate (Zolpidem 5 Mg Tablet) 5 mg PO HSP PRN PRN Reason: Insomnia A/P Assessment and plan (1) Hypokalemia: Status: Acute (2) Sepsis: Status: Acute Qualifiers: Sepsis acute organ dysfunction status: without acute organ dysfunction Sepsis type: sepsis due to unspecified organism Qualified Code(s): A41.9 - Sepsis, unspecified organism (3) UTI (urinary tract infection): Status: Acute Qualifiers: Hematuria presence: with hematuria Urinary tract infection type: site unspecified Qualified Code(s): N39.0 - Urinary tract infection, site not specified; R31.9 - Hematuria, unspecified (4) Non Hodgkin's lymphoma: Status: Chronic Qualifiers: Non-Hodgkin lymphoma type: follicular Follicular lymphoma type: unspecified follicular type Lymphoma site: lower extremity Qualified Code(s): C82.95 - Follicular lymphoma, unspecified, lymph nodes of inguinal region and lower limb (5) Pulmonary HTN: Status: Chronic (6) GERD (gastroesophageal reflux disease): Status: Chronic Qualifiers: Esophagitis presence: esophagitis presence not specified Qualified Code(s): K21.9 - Gastro-esophageal reflux disease without esophagitis (7) Bronchitis: Status: Chronic (8) Sarcoidosis: Status: Chronic Comment: intermittently symptomatic (9) Amyloidosis: Status: Chronic Comment: 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 Sepsis with UTI: Stays in inpatient med surg Serial lactic acid 1.7 Procalcitonin 0.34 elevated Blood culture X2 no growth to date Urine culture no growth to date NS bolus 1L followed by NS@100cc/hr Rocephin Tylenol PRN fever cbc w/ auto diff in the morning to trend WBC 2. h/o non-Hodgkin lymphoma: Continue to monitor, need follow up with oncologist outpatient setting 3. Hypokalemia: Continue potassium replacement CMP in the morning to trend serum potassium level Also check serum Mg level and replace if needed 4. Essential HTN: Amlodipine d/c HCTZ-Losartan, instead do Losartan 100mg PO daily since we are giving IV fluid at the same time 5. h/o GERD: Continue oral PPI 6. Morbid obesity: [employer] Stitcher patient on life style modifications such as regular exercise and healthy diet in order to lose weight 7. h/o asthma and bronchiectasis: Continue Advair Diskus 8. h/o Depression: Fluoxetine 9. Amyloidosis/Sarcoidosis: Continue to monitor GI ppx: continue oral PPI DVY ppx: Lovenox Code status: Full Prognosis: guarded Disposition: inpatient med sug Time Spent With Patient Time: Total time spent is greater than 50% in coordination of care (as documented) at patient's floor/unit and/or counseling patient:
[2021-05-03] MEDS ORDERED: [UNRECOGNIZED DRUG - OTHER] PO SCH (09:00)
[2021-05-03] MEDS ORDERED: FOLIC ACID PO SCH (09:00)
[2021-05-03] MEDS ORDERED: POTASSIUM GLUCONATE 99 MG PO SCH (09:00)
[2021-05-03] MEDS ORDERED: LOSARTAN/HCTZ 100/25 TABLET PO SCH (09:00)
[2021-05-03] MEDS ORDERED: NON FORMULARY MEDICATION 1 DOSE MISCELL (Calcium Carbonate-Vitamin D3 [Calcium 600 + D(3)] PO SCH (09:00)
[2021-05-03] MEDS ORDERED: CHOLESTYRAMINE 4 GM PO SCH (09:00)
[2021-05-03] MEDS ORDERED: cefTRIAXone 1 GM VIAL IV SCH (09:00)
[2021-05-03] MEDS ORDERED: MULTIVITAMIN PO SCH (09:00)
[2021-05-03] MEDS ORDERED: LOPERAMIDE 2 MG CAPSULE PO PRN (09:00)
[2021-05-03] MEDS ORDERED: MELOXICAM 15 MG PO SCH (09:00)
[2021-05-03] MEDS ORDERED: LOPERAMIDE 2 MG PO SCH (09:00)
--- NOTE | 2021-05-03 09:14 | XRay Report ---
HISTORY: Non-Hodgkin's lymphoma on chemotherapy, cough and leukocytosis FINDINGS: The lungs are clear except for a thin band of discoid atelectasis above the left diaphragm. This no evidence of pneumonia or pulmonary mass. No enlarged lymph nodes are detected. The heart is borderline enlarged. No congestive heart failure or pleural effusion are present. There is a Port-A-Cath in the superior vena cava. Delayed union of the pathologic fracture in the right clavicle is again seen. There has been no significant change except for the discoid atelectasis in the left lower lobe, since the recent chest CT done on 04/17/21. IMPRESSION: No acute abnormality Interpreted and Authenticated by: Robbi Nguyễn 05/03/21
[2021-05-03] MEDS: cefTRIAXone 1 GM VIAL IV SCH (09:52)
[2021-05-03] MEDS: ENOXAPARIN 40 MG/0.4 ML SYRINGE SQ SCH (09:52)
[2021-05-03] MEDS: CHOLESTYRAMINE/ASPARTAME 4 GM POWD.PACK PO SCH (09:53)
[2021-05-03] MEDS: POTASSIUM CHLORIDE 20 MEQ TABLET PO SCH (16:48)
[2021-05-03] MEDS: SENNOSIDES 1 TABLET PO SCH (20:12)
[2021-05-03] MEDS: PSYLLIUM HUSK 0.52 GM PO SCH (22:04)
[2021-05-04] MEDS: 0.9 % SODIUM CHLORIDE 1,000 ML IV SCH ×3 (02:02→11:49)
[2021-05-04] MEDS: 0.9 % SODIUM CHLORIDE 10 ML SYRINGE IV SCH ×4 (05:37→21:08)
[2021-05-04 07:49] LABS: Basophils # (Auto) 0.07 K/mcL (0.00-0.20); Basophils % (Auto) 0.3 % (0.0-2.0); Eosinophils # (Auto) 0.04 K/mcL (0.00-0.70); Eosinophils % (Auto) 0.2 % (0.0-7.0); Hematocrit 31.9 % (36.0-48.0); Hemoglobin 10.3 g/dL (12.0-15.0); Lymphocytes # (Auto) 0.18 K/mcL (1.50-4.80); Lymphocytes % (Auto) 0.8 % (15.0-49.0); Mean Cell Volume 94.1 fL (80.0-100.0); Mean Corpuscular HGB Conc 32.3 g/dL (31.0-36.0); Mean Platelet Volume 9.8 fL (7.4-10.4); Monocytes # (Auto) 1.42 K/mcL (0.10-0.90); Monocytes % (Auto) 6.5 % (1.0-12.0); Neutrophils % (Auto) 92.2 % (38.0-78.0); Platelet Count 178 K/mcL (140-440); RBC 3.39 M/mcL (4.00-5.20); Red Cell Distribution Width 16.2 % (11.5-14.5); WBC 21.8 K/mcL (4.5-11.0)
[2021-05-04] MEDS ORDERED: POTASSIUM CHLORIDE 20 MEQ PACKET PO SCH (08:00)
[2021-05-04 08:46] LABS: ALT/SGPT 16 U/L (<40); AST/SGOT 18 U/L (<32); Albumin 3.3 gm/dL (3.2-5.2); Albumin/Globulin Ratio 1.3 (1.0-2.3); Alkaline Phosphatase 266 U/L (39-117); Bilirubin,Total 0.4 mg/dL (0.1-1.0); Blood Urea Nitrogen 3 mg/dL (8-23); Calcium 7.8 mg/dL (8.6-10.4); Carbon Dioxide 23 mmol/L (22-30); Chloride 99 mmol/L (96-108); Globulin 2.6 gm/dL (2.2-3.7); Glomerular Filtration Rate 110; Glucose 108 mg/dL (70-105)
[2021-05-04] MEDS: LOSARTAN 50 MG TABLET PO SCH ×2 (09:40→12:29)
[2021-05-04] MEDS: amLODIPine 5 MG TABLET PO SCH (09:40)
[2021-05-04] MEDS: POTASSIUM CHLORIDE 20 MEQ TABLET PO SCH ×2 (09:53→16:42)
[2021-05-04] MEDS: HYDROXYCHLOROQUINE 200 MG TABLET PO SCH (09:53)
[2021-05-04] MEDS: FOLIC ACID 1 MG TABLET PO SCH (09:53)
[2021-05-04] MEDS: CALCIUM W/VIT D3 500 MG TABLET PO SCH (09:54)
[2021-05-04] MEDS: ACYCLOVIR 400 MG TABLET PO SCH (09:54)
[2021-05-04] MEDS: OMEPRAZOLE 20 MG CAPSULE PO SCH (09:55)
[2021-05-04] MEDS: DOCUSATE SODIUM 100 MG CAPSULE PO SCH ×2 (09:55→21:06)
[2021-05-04] MEDS: MULTIVIT,THER IRON,CA,FA & MIN 1 TABLET PO SCH (09:55)
[2021-05-04] MEDS: FLUoxetine HCL 20 MG CAPSULE PO SCH (09:55)
[2021-05-04] MEDS: ENOXAPARIN 40 MG/0.4 ML SYRINGE SQ SCH (09:56)
[2021-05-04] MEDS: FLUTICASONE/SALMETEROL 500/50 INHALER #14 INH SCH ×2 (09:56→21:05)
[2021-05-04] MEDS: MELOXICAM 7.5 MG TABLET PO SCH (09:56)
[2021-05-04] MEDS: GLUCOSAMINE 750 MG PO SCH ×2 (10:02→21:08)
[2021-05-04] MEDS: POTASSIUM GLUCONATE 99 MG PO SCH (10:02)
[2021-05-04] MEDS: cefTRIAXone 1 GM VIAL IV SCH (10:13)
[2021-05-04] MEDS: MAGNESIUM OXIDE 400 MG TABLET PO SCH ×2 (10:57→21:06)
[2021-05-04] MEDS: CHOLESTYRAMINE/ASPARTAME 4 GM POWD.PACK PO SCH (11:49)
--- NOTE | 2021-05-04 12:15 | Internal Med Progress Note ---
SUBJECTIVE Subjective Patient information: Note initiated : 05/04/21 at 12:12 pm Service Date, if different from initiated Date: [] Patient: Ursula Valencia a 65 y/o F admitted on 05/02/21 for nausea, vomiting, fever. Chief Complaint: [UTI sepsis] 05/03/21: Afebrile. Blood and urine cultures no growth to date. No other major overnight events. Patient is feeling fine this morning. Denies fever or chills or sweating. Denies dysuria, or change in urinary frequency or urgency. Denies nausea or vomiting. 05/03/21: Afebrile. Urine culture growing gram negative bacillus. No other major overnight events. Patient is feeling fine this morning. c/o mild to moderate bilateral cramping pelvic pain. Denies fever or chills or sweating. Denies dysuria, or change in urinary frequency or urgency. Denies nausea or vomiting. Constitutional Vitals: Vital Signs Temp Pulse Resp BP Pulse Ox 36.7 C 93 H 20 102/62 97 05/04/21 08:00 05/04/21 08:00 05/04/21 08:00 05/04/21 08:00 05/04/21 08:00 Period Temp Pulse Resp BP Sys/Olmos Pulse Ox Last 24 Hr 36.6 C-38.2 C 87-127 18-24 102-124/62-70 94-97 Intake and Output 05/03/21 05/04/21 05/04/21 21:59 05:59 13:59 Intake Total 2040 700 1500 Output Total 950 550 750 Balance 1090 150 750 Weight 124.454 kg Intake & Output: Intake & Output 05/03/21 05/04/21 05/04/21 21:59 05:59 13:59 Intake Total 2040 700 1500 Output Total 950 550 750 Balance 1090 150 750 Weight 124.454 kg Intake: IV 1000 1000 Sodium Chloride 0.9% 1,000 ml @ 1000 1000 100 mls/hr IV .Q10H [facility] Rx#: [id number] Oral 1040 700 500 Output: Void Amount 900 550 750 Emesis 50 Other: Meal Dinner Percent of Meal Consumed 50% Urine Appearance Sediment Mucous Threads Clear Urine Color Dark Yellow Dark Jacqueline Bright Yellow Urine Odor Normal Normal Normal General appearance: cooperative and no acute distress Head Head exam: Present atraumatic and normocephalic Eye Eye exam: Present EOMI and PERRL ENT ENT exam: Present mucous membranes moist, normal exam and normal external ear exam Neck Neck exam: Present normal inspection; Absent lymphadenopathy, tenderness and thyromegaly Respiratory Respiratory exam: Absent accessory muscle use, respiratory distress and wheezes Cardiovascular Cardiovascular exam: Present normal rate and rhythm; Absent JVD GI/Abdominal GI/Abdominal exam: Present normal bowel sounds and soft; Absent organomegaly and tenderness Extremities Exam Extremities exam: Present full ROM, normal capillary refill and normal inspection; Absent tenderness Neurological Exam Neurological exam: Present alert, CN II-XII intact and oriented X3; Absent motor sensory deficit Psychiatric Psychiatric exam: Present normal affect and normal mood; Absent anxious and depressed Skin Skin exam: Present dry and intact OBJ DATA Labs CBC & Chem 7: 05/04/21 05:38 05/04/21 05:38 Labs: Abnormal Lab Results 05/04/21 05/04/21 05/03/21 05:38 05:38 05:34 WBC 21.8 H RBC 3.39 L Hgb 10.3 L Hct 31.9 L RDW 16.2 H Neut % (Auto) 92.2 H Lymph % (Auto) 0.8 L Lymph # (Auto) 0.18 L [place] # (Auto) 1.42 H Absolute Neutrophils 20.11 H Potassium 3.0 L 2.7 L* Chloride Anion Gap 17.0 H BUN 3 L 4 L Creatinine 0.4 L 0.5 L Glucose 108 H 116 H Calcium 7.8 L 7.5 L Alkaline Phosphatase 266 H 166 H Total Protein 5.8 L Procalcitonin Urine Appearance Urine Ketones Ur Leukocyte Esterase Urine WBC Urine Bacteria Urine Mucus 05/03/21 05/02/21 05/02/21 05:34 17:05 17:00 WBC 27.2 H RBC 3.30 L Hgb 9.8 L Hct 30.5 L RDW 16.3 H Neut % (Auto) 95.5 H Lymph % (Auto) 0.4 L Lymph # (Auto) 0.11 L [place] # (Auto) 1.00 H Absolute Neutrophils 26.01 H Potassium Chloride Anion Gap BUN Creatinine Glucose Calcium Alkaline Phosphatase Total Protein Procalcitonin 0.34 H Urine Appearance Hazy A Urine Ketones 20 A Ur Leukocyte Esterase 25 A Urine WBC 26 H Urine Bacteria Few A Urine Mucus Few A 05/02/21 05/02/21 17:00 17:00 WBC 32.8 H* RBC 3.56 L Hgb 11.1 L Hct 33.1 L RDW 16.6 H Neut % (Auto) 96.1 H Lymph % (Auto) 0.5 L Lymph # (Auto) 0.15 L [place] # (Auto) 0.97 H Absolute Neutrophils 31.56 H Potassium 2.8 L* Chloride 93 L Anion Gap BUN 6 L Creatinine Glucose 113 H Calcium 8.5 L Alkaline Phosphatase 122 H Total Protein Procalcitonin Urine Appearance Urine Ketones Ur Leukocyte Esterase Urine WBC Urine Bacteria Urine Mucus Meds: Medications Acetaminophen (Acetaminophen 325 Mg Tablet) 650 mg PO Q6HP PRN; Protocol PRN Reason: Per Pain Protocol/Fever > 101 Last Admin: 05/03/21 23:51 Dose: 650 mg Documented by: Hydrocodone Bitart/Acetaminophen (Hydrocodone/Apap 7.5/325mg Tablet) 1 - 2 tab PO HSP PRN PRN Reason: Pain Acyclovir (Acyclovir 400 Mg Tablet) 400 mg PO QDAY [facility]; Protocol Last Admin: 05/04/21 09:54 Dose: 400 mg Documented by: Albuterol Sulfate (Albuterol Sulfate 200 Puff Inhaler) 2 puff INH Q6HP PRN PRN Reason: Shortness Of Breath Albuterol/Ipratropium (Ipratropium/Albuterol 3 Ml Ampul.Neb) 3 ml NEB BID PRN PRN Reason: Shortness Of Breath Or Wheezing Amlodipine Besylate (Amlodipine 5 Mg Tablet) 5 mg PO QDAY [facility] Last Admin: 05/04/21 09:40 Dose: Not Given Documented by: Calcium/Vitamin D (Calcium W/Vit D3 500 Mg Tablet) 500 mg PO DAILY [facility] Last Admin: 05/04/21 09:54 Dose: 500 mg Documented by: Ceftriaxone Sodium (Ceftriaxone 1 Gm Vial) 1 gm IV Q24H [facility]; Protocol Last Admin: 05/04/21 10:13 Dose: 1 gm Documented by: Cholestyramine Resin (Cholestyramine/Aspartame 4 Gm Powd.Pack) 4 gm PO QDAY [facility] Last Admin: 05/04/21 11:49 Dose: 4 gm Documented by: Docusate Sodium (Docusate Sodium 100 Mg Capsule) 100 mg PO BID [facility] Last Admin: 05/04/21 09:55 Dose: 100 mg Documented by: Enoxaparin Sodium (Enoxaparin 40 Mg/0.4 Ml Syringe) 40 mg SQ DAILY [facility] Last Admin: 05/04/21 09:56 Dose: 40 mg Documented by: Fluoxetine HCl (Fluoxetine Hcl 20 Mg Capsule) 20 mg PO QDAY [facility] Last Admin: 05/04/21 09:55 Dose: 20 mg Documented by: Folic Acid (Folic Acid 1 Mg Tablet) 6 mg PO DAILY [facility] Last Admin: 05/04/21 09:53 Dose: 6 mg Documented by: Guaifenesin (Guaifenesin 600 Mg Tab.Sr.12h) 600 mg PO Q4-5HP PRN PRN Reason: Cold Symptoms Hydroxychloroquine Sulfate (Hydroxychloroquine 200 Mg Tablet) 400 mg PO QDAY [facility] Last Admin: 05/04/21 09:53 Dose: 400 mg Documented by: Sodium Chloride (Sodium Chloride 0.9%) 1,000 mls @ 100 mls/hr IV .Q10H [facility] Last Admin: 05/04/21 11:49 Dose: Not Given Documented by: Iron Carb/Multivit/Barrel Straightener/Folic Acid (Multivit,Ther Iron,Ca,Fa & Min 1 Tablet) 1 tab PO DAILY [facility] Last Admin: 05/04/21 09:55 Dose: 1 tab Documented by: Loperamide HCl (Loperamide 2 Mg Capsule) 4 mg PO UD PRN PRN Reason: Diarrhea Losartan Potassium (Losartan 50 Mg Tablet) 100 mg PO DAILY [facility] Last Admin: 05/04/21 09:40 Dose: Not Given Documented by: Magnesium Oxide (Magnesium Oxide 400 Mg Tablet) 400 mg PO BID [facility] Last Admin: 05/04/21 10:57 Dose: 400 mg Documented by: Melatonin (Melatonin 3 Mg Tablet) 9 mg PO HSP PRN PRN Reason: Insomnia Meloxicam (Meloxicam 7.5 Mg Tablet) 15 mg PO DAILY [facility] Last Admin: 05/04/21 09:56 Dose: 15 mg Documented by: Methotrexate (Methotrexate Sodium 2.5 Mg Tablet) 20 mg PO We@0900 [facility] Morphine Sulfate (Morphine 4 Mg/Ml Vial) 2 mg IV Q4HP PRN; Protocol PRN Reason: Per Pain Protocol Omeprazole (Omeprazole 20 Mg Capsule) 20 mg PO QDAY [facility] Last Admin: 05/04/21 09:55 Dose: 20 mg Documented by: Ondansetron HCl (Ondansetron 4 Mg/2 Ml Vial) 4 mg IV Q6HP PRN PRN Reason: Nausea And Vomiting Last Admin: 05/03/21 20:07 Dose: 4 mg Documented by: Glucosamine 750 Mg (Tab) 1 dose PO BID [facility] Last Admin: 05/04/21 10:02 Dose: Not Given Documented by: Potassium Gluconate (99mg Tab) 1 dose PO QDAY [facility] Last Admin: 05/04/21 10:02 Dose: Not Given Documented by: Psyllium Husk [ Metamucil] 0.52 Gram Capsule 1 dose PO QHS [facility] Last Admin: 05/03/21 22:04 Dose: Not Given Documented by: Potassium Chloride (Potassium Chloride 20 Meq Tablet) 40 meq PO BIDCC [facility] Last Admin: 05/04/21 09:53 Dose: 40 meq Documented by: Fluticasone/Salmeterol (Fluticasone/Salmeterol 500/50 Inhaler #14) 1 puff INH BID [facility] Last Admin: 05/04/21 09:56 Dose: Not Given Documented by: Senna (Sennosides 1 Tablet) 2 tab PO HS [facility] Last Admin: 05/03/21 20:12 Dose: Not Given Documented by: Sodium Chloride (0.9 % Sodium Chloride 10 Ml Syringe) 10 ml IV Q8 [facility] Last Admin: 05/04/21 05:37 Dose: Not Given Documented by: Zolpidem Tartrate (Zolpidem 5 Mg Tablet) 5 mg PO HSP PRN PRN Reason: Insomnia A/P Assessment and plan (1) Hypokalemia: Status: Acute (2) Sepsis: Status: Acute Qualifiers: Sepsis acute organ dysfunction status: without acute organ dysfunction Sepsis type: sepsis due to unspecified organism Qualified Code(s): A41.9 - Sepsis, unspecified organism (3) UTI (urinary tract infection): Status: Acute Qualifiers: Hematuria presence: with hematuria Urinary tract infection type: site unspecified Qualified Code(s): N39.0 - Urinary tract infection, site not spe cified; R31.9 - Hematuria, unspecified (4) Non Hodgkin's lymphoma: Status: Chronic Qualifiers: Non-Hodgkin lymphoma type: follicular Follicular lymphoma type: unspecified follicular type Lymphoma site: lower extremity Qualified Code(s): C82.95 - Follicular lymphoma, unspecified, lymph nodes of inguinal region and lower limb (5) Pulmonary HTN: Status: Chronic (6) GERD (gastroesophageal reflux disease): Status: Chronic Qualifiers: Esophagitis presence: esophagitis presence not specified Qualified Code(s): K21.9 - Gastro-esophageal reflux disease without esophagitis (7) Bronchitis: Status: Chronic (8) Sarcoidosis: Status: Chronic Comment: intermittently symptomatic (9) Amyloidosis: Status: Chronic Comment: 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 Sepsis with UTI: Stays in inpatient med surg Serial lactic acid 1.7 Procalcitonin 0.34 elevated Blood culture X2 no growth to date Urine culture growing gram negative bacillus Saline lock Rocephin Tylenol PRN fever cbc w/ auto diff in the morning to trend WBC 2. h/o non-Hodgkin lymphoma: Continue to monitor, need follow up with oncologist outpatient setting 3. Hypokalemia: Continue potassium replacement CMP in the morning to trend serum potassium level Also check serum Mg level and replace if needed 4. Essential HTN: Amlodipine HCTZ-Losartan 5. h/o GERD: Continue oral PPI 6. Morbid obesity: Cook Fruit patient on life style modifications such as regular exercise and healthy diet in order to lose weight 7. h/o asthma and bronchiectasis: Continue Advair Diskus 8. h/o Depression: Fluoxetine 9. Amyloidosis/Sarcoidosis: Continue to monitor GI ppx: continue oral PPI DVY ppx: Lovenox Code status: Full Prognosis: guarded Disposition: inpatient med sug Time Spent With Patient Time: Total time spent is greater than 50% in coordination of care (as documented) at patient's floor/unit and/or counseling patient:
[2021-05-04] MEDS ORDERED: LOSARTAN/HCTZ 100/25 TABLET PO SCH (12:20)
[2021-05-04] MEDS: HYDROCHLOROTHIAZIDE 25 MG TABLET PO SCH (12:30)
[2021-05-04] MEDS: PSYLLIUM HUSK 0.52 GM PO SCH (21:08)
[2021-05-04] MEDS: SENNOSIDES 1 TABLET PO SCH (21:08)
[2021-05-05] MEDS: 0.9 % SODIUM CHLORIDE 10 ML SYRINGE IV SCH ×3 (06:17→16:05)
[2021-05-05 07:59] LABS: ALT/SGPT 13 U/L (<40); AST/SGOT 13 U/L (<32); Albumin/Globulin Ratio 1.2 (1.0-2.3); Alkaline Phosphatase 109 U/L (39-117); Bilirubin,Total 0.3 mg/dL (0.1-1.0); Blood Urea Nitrogen 3 mg/dL (8-23); Carbon Dioxide 27 mmol/L (22-30); Chloride 100 mmol/L (96-108); Globulin 2.6 gm/dL (2.2-3.7); Glomerular Filtration Rate 110; Glucose 100 mg/dL (70-105)
[2021-05-05 08:21] LABS: Hematocrit 28.9 % (36.0-48.0); Hemoglobin 9.3 g/dL (12.0-15.0); Mean Cell Volume 92.9 fL (80.0-100.0); Mean Corpuscular HGB Conc 32.2 g/dL (31.0-36.0); Platelet Count 166 K/mcL (140-440); RBC 3.11 M/mcL (4.00-5.20); Red Cell Distribution Width 16.1 % (11.5-14.5); WBC 8.8 K/mcL (4.5-11.0)
[2021-05-05] MEDS: HYDROXYCHLOROQUINE 200 MG TABLET PO SCH (08:41)
[2021-05-05] MEDS: POTASSIUM CHLORIDE 20 MEQ TABLET PO SCH (08:41)
[2021-05-05] MEDS: MAGNESIUM OXIDE 400 MG TABLET PO SCH (08:41)
[2021-05-05] MEDS: MULTIVIT,THER IRON,CA,FA & MIN 1 TABLET PO SCH (08:41)
[2021-05-05] MEDS: MELOXICAM 7.5 MG TABLET PO SCH (08:41)
[2021-05-05] MEDS: ACYCLOVIR 400 MG TABLET PO SCH (08:41)
[2021-05-05] MEDS: CALCIUM W/VIT D3 500 MG TABLET PO SCH (08:42)
[2021-05-05] MEDS: OMEPRAZOLE 20 MG CAPSULE PO SCH (08:42)
[2021-05-05] MEDS: DOCUSATE SODIUM 100 MG CAPSULE PO SCH (08:42)
[2021-05-05] MEDS: LOSARTAN 50 MG TABLET PO SCH (08:42)
[2021-05-05] MEDS: FLUoxetine HCL 20 MG CAPSULE PO SCH (08:42)
[2021-05-05] MEDS: FOLIC ACID 1 MG TABLET PO SCH (08:42)
[2021-05-05] MEDS: ENOXAPARIN 40 MG/0.4 ML SYRINGE SQ SCH (08:43)
[2021-05-05] MEDS: amLODIPine 5 MG TABLET PO SCH (08:43)
[2021-05-05] MEDS: HYDROCHLOROTHIAZIDE 25 MG TABLET PO SCH (08:43)
[2021-05-05] MEDS: GLUCOSAMINE 750 MG PO SCH (08:44)
[2021-05-05] MEDS: POTASSIUM GLUCONATE 99 MG PO SCH (08:44)
[2021-05-05] MEDS: FLUTICASONE/SALMETEROL 500/50 INHALER #14 INH SCH (08:48)
[2021-05-05] MEDS ORDERED: ASPIRIN 81 MG TAB.CHEW PO SCH (09:00)
[2021-05-05] MEDS ORDERED: RITUXIMAB 10 MG/ML IV SCH (09:00)
[2021-05-05] MEDS: cefTRIAXone 1 GM VIAL IV SCH (09:52)
--- NOTE | 2021-05-05 10:01 | Discharge Summary ---
Discharge Provider Provider Patient information: Note initiated : 05/05/21 at 9:59 am Service Date, if different from initiated Date: [] Patient: Ursula Valencia 65 y/o F admitted on 05/02/21 for nausea, vomiting, fever. Chief Complaint: [UTI] Date of admission: 05/02/21 20:20 Discharge date: 05/05/21 Primary care physician: Wendy Joseph Consults: 05/02/21 Consult to Physician [CONS] Stat Comment: Consulting Provider: Adan Rocha Reason For Exam: Physician to Consult Discharge Meds Discharge Medications Home Medications albuterol sulfate 90 mcg/actuation breath activated powder inhaler 2 inh INHALATION Q6H PRN 12/20/18 [History Confirmed 05/02/21 Last Taken 04/30/21 21:00] amlodipine 5 mg tablet 5 mg PO QDAY 12/20/18 [History Confirmed 05/02/21 Last Taken 05/02/21 08:00] fluoxetine 20 mg capsule 20 mg PO QDAY 12/20/18 [History Confirmed 05/02/21 Last Taken 05/02/21 09:00] fluticasone 500 mcg-salmeterol 50 mcg/dose blistr powdr for inhalation 1 inh INHALATION BID 12/20/18 [History Confirmed 05/02/21 Last Taken 05/02/21 08:00] hydroxychloroquine 200 mg tablet 400 mg PO QDAY tab 12/20/18 [History Confirmed 05/02/21 Last Taken 04/29/21 09:00] losartan 100 mg-hydrochlorothiazide 25 mg tablet 1 tab PO QDAY 12/20/18 [History Confirmed 05/02/21 Last Taken 05/02/21 09:00] meloxicam 15 mg tablet 15 mg PO QDAY 12/20/18 [History Confirmed 05/02/21 Last Taken 05/02/21 09:00] omeprazole 20 mg capsule,delayed release 20 mg PO QDAY 12/20/18 [History Confirmed 05/02/21 Last Taken 05/02/21 09:00] aspirin 81 mg tablet 81 mg PO QDAY 01/02/19 [History Confirmed 05/02/21 Last Taken 05/01/21 21:00] folic acid 6 mg PO QDAY 01/02/19 [History Confirmed 05/02/21 Last Taken 05/01/21 09:00] glucosamine 750 1 tab PO BID 01/02/19 [History Confirmed 05/02/21 Last Taken 05/01/21 21:00] loperamide 2 mg tablet 4 mg PO QDAY tab 01/02/19 [History Confirmed 05/02/21 Last Taken 04/30/21 09:00] methotrexate 20 mg 1 tab PO QWEEK 01/02/19 [History Confirmed 05/02/21 Last Taken 04/27/21 09:00] multivitamin 1 cap PO QDAY 01/02/19 [History Confirmed 05/02/21 Last Taken 04/30/21 09:00] potassium gluconate 99mg 1 tab PO QDAY 01/02/19 [History Confirmed 05/02/21 Last Taken 05/01/21 21:00] psyllium husk 0.52 gram capsule 0.52 g PO QHS 01/02/19 [History Confirmed 05/02/21 Last Taken 05/01/21 21:00] calcium carbonate 600 mg (1,500 mg)-vitamin D3 400 unit tablet 1 tab PO QDAY 07/02/19 [History Confirmed 05/02/21 Last Taken 05/01/21 21:00] cholestyramine (with sugar) 4 gram oral powder 1 g PO QDAY g 07/02/19 [History Confirmed 05/02/21 Last Taken 05/01/21 21:00] guaifenesin [Mucinex] 1 tab PO Q4-5HP PRN 08/22/20 [History Confirmed 05/02/21 Last Taken 05/02/21 09:00] hydrocodone 7.5 mg-acetaminophen 325 mg tablet See Rx Instructions .ROUTE .COMPLEX PRN #30 tab 01/28/21 [Rx Confirmed 05/04/21 Last Taken Unknown] acyclovir 400 mg tablet 400 mg PO QDAY 03/30/21 [History Confirmed 05/02/21 Last Taken 05/02/21 12:00] ipratropium 0.5 mg-albuterol 3 mg (2.5 mg base)/3 mL nebulization soln 3 ml INHALATION BID PRN ml 03/30/21 [History Confirmed 05/02/21 Last Taken 02/07/21] rituximab 10 mg/mL concentrate,intravenous 10 mg IV MONTHLY 03/30/21 [History Confirmed 05/04/21 Last Taken 05/01/21 09:00] sulfamethoxazole 800 mg-trimethoprim 160 mg tablet See Rx Instructions .ROUTE .COMPLEX tab 03/30/21 [History Confirmed 05/02/21 Last Taken Unknown] magnesium oxide 400 mg PO BID #10 tab 05/05/21 [Rx Last Taken Unknown] COURSE Hospital Course Hospital course: Patient was admitted on 05/02/2021 for urinary tract infections. After blood and urine culture were collected, patient was started on IV fluid as well as IV antibiotics Rocephin. Urine cultures subsequently grew Klebsiella pneumoniae and E. coli. By 05/05/2021, patient's leukocytosis resolved, has been afebrile for more than 24 hours, and otherwise reached clinical stability. As such, the decision was made to discharge to home with 2 weeks PCP follow-up bayron ointment set up for her. All questions were answered prior to patient being physically discharged. Discharge diagnosis: UTI Time Spent with Patient Time attestation: Total time spent providing and/or coordinating discharge services: Patient was admitted on 05/02/2021 for urinary tract infections. After blood and urine culture were collected, patient was started on IV fluid as well as IV antibiotics Rocephin. Urine cultures subsequently grew Klebsiella pneumoniae and E. coli. By 05/05/2021, patient's leukocytosis resolved, has been afebrile for more than 24 hours, and otherwise reached clinical stability. As such, the decision was made to discharge to home with 2 weeks PCP follow-up appointment set up for her. All questions were answered prior to patient being physically discharged. EXAM Constitutional Vitals: Temp Pulse Resp BP Pulse Ox 37.2 C 90 20 109/65 96 05/05/21 07:45 05/05/21 07:45 05/05/21 07:45 05/05/21 07:45 05/05/21 07:45 General appearance: cooperative and no acute distress Head Head exam: Present atraumatic and normocephalic Eye Eye exam: Present EOMI and PERRL ENT ENT exam: Present mucous membranes moist, normal exam and normal external ear exam Neck Neck exam: Present normal inspection; Absent lymphadenopathy, tenderness and thyromegaly Respiratory Respiratory exam: Absent accessory muscle use, respiratory distress and wheezes Cardiovascular Cardiovascular exam: Present normal rate and rhythm; Absent JVD Additional comments: Port-a-cath on right chest wall GI/Abdominal GI/Abdominal exam: Present normal bowel sounds and soft; Absent organomegaly and tenderness Extremities Exam Extremities exam: Present full ROM, normal capillary refill and normal inspection; Absent tenderness Neurological Exam Neurological exam: Present alert, CN II-XII intact and oriented X3; Absent motor sensory deficit Psychiatric Psychiatric exam: Present normal affect and normal mood; Absent anxious and depressed Skin Skin exam: Present dry and intact Discharge Data Data Completed and Pending Labs on day of discharge: Labs from last 24 hours 05/05/21 05/05/21 06:05 06:05 WBC 8.8 RBC 3.11 L Hgb 9.3 L Hct 28.9 L MCV 92.9 MCH 29.9 MCHC 32.2 RDW 16.1 H Plt Count 166 MPV 10.0 Neut % (Auto) Lymph % (Auto) [place] % (Auto) Eos % (Auto) Baso % (Auto) Lymph # (Auto) [place] # (Auto) Eos # (Auto) Baso # (Auto) Absolute Neutrophils Sodium 136 Potassium 3.2 L Chloride 100 Carbon Dioxide 27 Anion Gap 9.0 BUN 3 L Creatinine 0.4 L GFR Calculation 110 Glucose 100 Calcium 8.0 L Magnesium 1.5 L Total Bilirubin 0.3 AST 13 ALT 13 Alkaline Phosphatase 109 Total Protein 5.6 L Albumin 3.0 L Globulin 2.6 Albumin/Globulin Ratio 1.2 Preliminary micro results at discharge 05/02/21 18:45 Blood Culture - Preliminary Blood 05/02/21 18:45 Blood Culture - Preliminary Blood 05/02/21 17:05 Urine Culture - Preliminary Urine - Clean Void Mid-Stream Klebsiella pneumoniae Escherichia coli Discharge Plan Patient/Caregiver Discharge Instructions Activity: increase activity as tolerated Diet: Regular Diet Prescriptions: New magnesium oxide 400 mg (241.3 mg magnesium) Tablet 400 mg PO BID Qty: 10 RF: 0 Continued glucosamine 750 750 mg 1 tab PO BID RF: 0 potassium gluconate 99mg 1 tab PO QDAY RF: 0 aspirin 81 mg tablet 81 mg tablet 81 mg PO QDAY RF: 0 psyllium husk [Metamucil] 0.52 gram capsule 0.52 g PO QHS RF: 0 methotrexate 20 mg 1 tab PO QWEEK RF: 0 folic acid 6 mg PO QDAY RF: 0 multivitamin capsule capsule 1 cap PO QDAY RF: 0 loperamide [Imodium A-D] 2 mg tablet 4 mg PO QDAY RF: 0 cholestyramine (with sugar) 4 gram powder 1 g PO QDAY RF: 0 calcium carbonate-vitamin D3 [Calcium 600 + D(3)] 600 mg(1,500mg) -400 unit tablet 1 tab PO QDAY RF: 0 hydrocodone-acetaminophen 7.5-325 mg tablet See Rx Instructions .ROUTE .COMPLEX PRN (Reason: pain) Qty: 30 RF: 0 amlodipine 5 mg tablet 5 mg PO QDAY RF: 0 losartan-hydrochlorothiazide 100-25 mg tablet 1 tab PO QDAY RF: 0 hydroxychloroquine 200 mg tablet 400 mg PO QDAY RF: 0 fluoxetine 20 mg capsule 20 mg PO QDAY RF: 0 meloxicam 15 mg tablet 15 mg PO QDAY RF: 0 fluticasone propion-salmeterol [Advair Diskus] 500-50 mcg/dose blister with device 1 inh INHALATION BID RF: 0 omeprazole 20 mg capsule,delayed release(DR/EC) 20 mg PO QDAY RF: 0 albuterol sulfate 90 mcg/actuation aerosol powdr breath activated 2 inh INHALATION Q6H PRN (Reason: Bronchospasm) RF: 0 sulfamethoxazole-trimethoprim 800-160 mg tablet See Rx Instructions .ROUTE .COMPLEX RF: 0 acyclovir 400 mg tablet 400 mg PO QDAY RF: 0 Rituxan 10 mg/mL concentrate 10 mg IV MONTHLY RF: 0 ipratropium-albuterol 0.5 mg-3 mg(2.5 mg base)/3 mL solution for nebulization 3 ml inhalation BID PRN (Reason: Shortness Of Breath Or Wheezing) RF: 0 guaifenesin 1 tab PO Q4-5HP PRN (Reason: Cold Symptoms) RF: 0 Follow Up Plan Follow up with: Wendy Joseph MD [Primary Care Provider] - Patient Disposition: Home, Self-Care Prognosis: Good Rehab Potential: Good I certify that the patient requires SNF services: No Overall status at discharge: patient is back to baseline Discharge Orders: Discharge Order (Routine); Ordered 05/05/21 Ordered By: Adan Rocha
[2021-05-05] MEDS: CHOLESTYRAMINE/ASPARTAME 4 GM POWD.PACK PO SCH (10:02)
[2021-05-05] MEDS ORDERED: HEPARIN SODIUM,PORCINE/PF 500 UNIT/5 ML SYRINGE IV ONE (11:17)
[2021-05-06] MEDS ORDERED: METHOTREXATE SODIUM 2.5 MG TABLET PO SCH (09:00)
== END 2021-05-05 16:00 | disposition home or self-care (01) | DRG 872 ==
LOC: ED 16:11 → MEDSUR 20:20
PROVIDERS: ADMIT Internal Medicine; ATTEND Internal Medicine